=== PATIENT | female | born 1985 | race American Indian/Alaskan Native ===

== ENCOUNTER 2019-02-05 09:14 | Emergency (ER) | payer OTHER, MEDICAID ==
[2019-02-05 09:23] VITALS: BP 128/85
[2019-02-05] MEDS ORDERED: DECADRON IM ONE (10:11)
[2019-02-05] MEDS ORDERED: INDOCIN PO ONE (10:30)
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
== END 2019-02-05 11:19 | disposition home or self-care (01) ==
LOC: ED 09:14
DX: S16.1XXA Strain of muscle, fascia and tendon at neck level, initial encounter (principal); M06.9 Rheumatoid arthritis, unspecified; V89.0XXA Person injured in unspecified motor-vehicle accident, nontraffic, initial encounter; Y93.89 Activity, other specified; Y92.410 Unspecified street and highway as the place of occurrence of the external cause; Y99.8 Other external cause status
CPT/HCPCS: 99282; J1100

== ENCOUNTER 2022-01-26 08:28 | Emergency (ER) | payer MEDICAID, MEDICARE ==
[2022-01-26 08:45] VITALS: BP 146/101
--- NOTE | 2022-01-26 09:21 | XRay Report ---
Right wrist 3 views INDICATION: Fall FINDINGS: Advanced degenerative changes seen throughout the carpal bones, base of the thumb and radio carpal joint. Diffuse soft tissue edema is identified. Degenerative change alters overall alignment. Erosions in the distal radius. 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 Diffuse soft ti ssue swelling is seen. No displaced fractures definite seen however correlation with point tenderness and follow-up if patient's symptoms persist. Signer Name: Koko Smiley MD Signed: 01/26/2022 9:17 AM Workstation Name: [id number]
--- NOTE | 2022-01-26 09:35 | XRay Report ---
XR forearm RT INDICATION / CLINICAL INFORMATION: INJURY. COMPARISON: None available. FINDINGS: No acute fracture. Normal alignment. Arthropathy throughout the wrist. No destructive osseous lesio n or suspicious periosteal reaction. Impression: 1.No acute fracture. Signer Name: John Joseph MD Signed: 01/26/2022 9:30 AM Workstation Name: [id number]
[2022-01-26] MEDS ORDERED: KETOROLAC 10 MG TAB PO ONE (09:44)
[2022-01-26] MEDS ORDERED: oxyCODONE /ACETAMINOPHEN 5-325MG TAB PO ONE (09:44)
--- NOTE | 2022-01-26 09:48 | Emergency Department Report ---
ED Fall HPI - General Chief Complaint: Extremity Injury, Upper Stated Complaint: BROKEN RISK Time Seen by Provider: 01/26/22 08:50 Source: patient Mode of arrival: Ambulatory - History of Present Illness Initial Comments: 36-year-old black female presents to the emergency department for evaluation of right wrist and forearm pain. She states that she fell at home this morning and landed on her right arm. She denies loss of consciousness.She presents with right wrist pain and swelling. - Related Data Previous Rx's Medication Instructions Recorded Last Taken Type Cyclobenzaprine [Flexeril] 10 mg PO QHS PRN #20 tablet 02/05/19 Unknown Rx Indomethacin 50 mg PO BID #20 capsule 02/05/19 Unknown Rx Acetaminophen/Codeine [Tylenol 1 tab PO Q6H PRN #10 tab 01/26/22 Unknown Rx /Codeine # 3 tab] Prednisone [predniSONE 10 mg 10 mg PO .TAPER #1 pack 01/26/22 Unknown Rx (6-Day Pack, 21 Tabs)] Allergies Allergy/AdvReac Type Severity Reaction Status Date / Time No Known Allergies Allergy Verified 02/05/19 09:17 ED Review of Systems ROS: Stated complaint: BROKEN RISK Other details as noted in HPI Comment: All other systems reviewed and negative Constitutional: denies: chills, fever Eyes: denies: eye pain ENT: denies: ear pain Respiratory: denies: SOB with exertion Cardiovascular: denies: chest pain, palpitations Endocrine: no symptoms reported Gastrointestinal: denies: abdominal pain, nausea, vomiting Genitourinary: denies: dysuria Skin: denies: rash Neurological: denies: headache Psychiatric: denies: anxiety, depression Hematological/Lymphatic: denies: easy bleeding, easy bruising ED Past Medical Hx - Past Medical History Additional medical history: Rheumetoid Arthritis - Social History Smoking Status: Never Smoker Substance Use Type: None - Medications Home Medications: Home Medications Medication Instructions Recorded Confirmed Last Taken Type Cyclobenzaprine [Flexeril] 10 mg PO QHS PRN #20 tablet 02/05/19 Unknown Rx Indomethacin 50 mg PO BID #20 capsule 02/05/19 Unknown Rx Acetaminophen/Codeine [Tylenol 1 tab PO Q6H PRN #10 tab 01/26/22 Unknown Rx /Codeine # 3 tab] Prednisone [predniSONE 10 mg 10 mg PO .TAPER #1 pack 01/26/22 Unknown Rx (6-Day Pack, 21 Tabs)] ED Physical Exam - General Limitations: No Limitations General appearance: alert, in no apparent distress - Head Head exam: Present: atraumatic, normocephalic - Eye Eye exam: Present: normal appearance. Absent: conjunctival injection - Neck Neck exam: Absent: normal inspection, tenderness - Respiratory Respiratory exam: Absent: respiratory distress - Cardiovascular Cardiovascular Exam: Present: regular rate - GI/Abdominal GI/Abdominal exam: Absent: distended - Extremities Exam Extremities exam: Absent: normal inspection - Expanded Upper Extremity Exam Right Forearm Wrist exam: Present: tenderness, swelling. Absent: full ROM, deformity, dislocation, erythema, tenderness over anatomical snuff box, pain with axial thumb loading Hand Wrist exam: Present: tenderness, swelling. Absent: full ROM, abrasion, laceration, ecchymosis, deformity, crepidus, dislocation, erythema Vascular: Present: radial pulse. Absent: vascular compromise - Back Exam Back exam: Present: normal inspection - Neurological Exam Neurological exam: Present: alert, oriented X3 - Psychiatric Psychiatric exam: Present: normal affect, normal mood - Skin Skin exam: Present: warm, dry, intact, normal color ED Course Vital Signs 01/26/22 01/26/22 08:43 09:45 Temperature 98.7 F Pulse Rate 81 Respiratory 17 Rate Blood Pressure 146/101 O2 Sat by Pulse 97 100 Oximetry ED Medical Decision Making - Radiology Data Radiology results: report reviewed, image reviewed Right forearm xray Impression: No acute abnormalities noted. Right wrist xray Impression: Advanced degenerative changes seen throughout the carpal bones and radiocarpal joint. Diffuse soft tissue swelling is seen. No displaced fractures definite seen however correlation with point tenderness and follow-up if patient's symptoms persist. - Medical Decision Making 36-year-old black female presents to the emergency department for evaluation of right wrist and forearm pain. She states that she fell at home this morning and landed on her right arm. She denies loss of consciousness.She presents with right wrist pain and swelling. Right wrist and forearm xray without any acute abnormalities. Jhonny wrap placed on wrist and patient advised to take medications as prescribed and follow up with orthopedics if no improvement or worsening symptoms. She verbalized understanding of and agreement with plan of care. Critical care attestation.: If time is entered above; I have spent that time in minutes in the direct care of this critically ill patient, excluding procedure time. ED Disposition Clinical Impression: Right wrist pain, Right forearm pain Fall Qualifiers: Encounter type: initial encounter Qualified Code(s): W19.XXXA - Unspecified fall, initial encounter Disposition: HOME / SELF CARE / HOMELESS Is pt being admited?: No Does the pt Need Aspirin: No Condition: Stable Instructions: How to Use Cold Therapy, [id number], Wrist Pain, Adult, [id number], Joint Pain, [id number] Additional Instructions: Take medications as prescribed. Follow-up with primary care provider or orthopedics as needed. Prescriptions: Prednisone [predniSONE 10 mg (6-Day Pack, 21 Tabs)] 10 mg PO .TAPER #1 pack Acetaminophen/Codeine [Tylenol /Codeine # 3 tab] 1 tab PO Q6H PRN #10 tab PRN Reason: Pain , Severe (7-10) Referrals: DURGA MORFIN MD [Referring] - 3-5 Days JAKOB ODONNELL MD [Staff Physician] - 3-5 Days Forms: Work/School Release Form(ED) Time of Disposition: 09:47
== END 2022-01-26 10:45 | disposition home or self-care (01) ==
LOC: ED 08:28
DX: M25.531 Pain in right wrist (principal); M79.631 Pain in right forearm; W19.XXXA Unspecified fall, initial encounter; Y93.89 Activity, other specified; Y92.89 Other specified places as the place of occurrence of the external cause; Y99.8 Other external cause status
CPT/HCPCS: 99283